=== PATIENT | male | born 1965 | race Caucasian/White ===

== ENCOUNTER → 2018-09-06 | Outpatient (CLI) | payer OTHER ==
--- NOTE | 2018-09-06 10:27 | PCVCIMAG ---
APPROVED REPORT Study performed: 09/06/2018 08:45:05 EXAM: Comprehensive 2D, Doppler, and color-flow Echocardiogram Patient Location: Echo lab Status: routine BSA: 2.22 HR: 70 bpmBP: 118/70 mmHg Rhythm: NSR Other Information Study Quality: Adequate Risk Factors: Cardiac Risk Factors: HTN Indications Chest Pain pre-diabetes 2D Dimensions IVSd: 11.85 (7-11mm)LVOT Diam: 19.31 (18-24mm) LVDd: 45.15 mm PWd: 9.38 (7-11mm)Ascending Ao: 32.82 (22-36mm) LVDs: 38.17 (25-40mm) Left Atrium: 49.26 (27-40mm) Aortic Root: 33.13 mm LV Single Plane 4CH: 57.85 % LV Single Plane 2CH: 55.83 % Biplane EF: 57.5 % Volumes Left Atrial Volume (Systole) Single Plane 4CH: 19.65 mLSingle Plane 2CH: 37.23 mL LA ESV Index: 12.00 mL/m2 Aortic Valve AoV Peak Ld.: 1.20 m/s AO Peak Gr.: 5.73 mmHgLVOT Max P.44 mmHg LVOT Max V: 0.93 m/s ANTONIO Vmax: 2.27 cm2 Mitral Valve E/A Ratio: 0.9 MV Decel. Time: 168.69 ms MV E Max Ld.: 0.78 m/s MV A Ld.: 0.88 m/s TDI E/Lateral E': 6.00E/Medial E': 8.67 Medial E' Ld.: 0.09 m/s Lateral E' Ld.: 0.13 m/s Pulmonary Valve PV Peak Gr.: 4.24 mmHg Pulmonary Vein P Vein S: 0.70 m/sP Vein A: 0.41 m/s P Vein D: 0.61 m/sP Vein A Dur.: 83.0 msec P Vein S/D Ratio: 1.15 Tricuspid Valve TR Peak Ld.: 3.03 m/s TR Peak Gr.: 36.62 mmHg Left Ventricle The left ventricle is normal size. There is normal LV segmental wall motion. There is normal left ventricular wall thickness. Left ventricular systolic function is normal. The left ventricular ejection fraction is within the normal range. LVEF is 60-65%. The left ventricular diastolic function is normal. Right Ventricle The right ventricle is normal size. The right ventricular systolic function is normal. Atria The left atrium size is normal. The right atrium size is normal. Aortic Valve The aortic valve is normal in structure. No aortic regurgitation is present. There is no aortic valvular stenosis. Mitral Valve The mitral valve is normal in structure. There is no mitral valve regurgitation noted. No evidence of mitral valve stenosis. Tricuspid Valve The tricuspid valve is normal in structure. Trace tricuspid regurgitation. Pulmonic Valve The pulmonary valve is normal in structure. There is no pulmonic valvular regurgitation. Great Vessels The aortic root is normal in size. IVC is normal in size and collapses >50% with inspiration. Pericardium There is no pericardial effusion. <Conclusion> The left ventricle is normal size. There is normal left ventricular wall thickness. Left ventricular systolic function is normal. The right ventricle is normal size. The left atrium size is normal. The aortic valve is normal in structure. The mitral valve is normal in structure. Trace tricuspid regurgitation.
--- NOTE | 2018-09-07 09:58 | PCVCIMAG ---
APPROVED REPORT Study performed: 09/06/2018 09:00:43 Exam: Stress Echocardiogram Indication: Hypertension Patient Location: Echo lab Stress Nurse: Nevin Pratt RN Status: routine Ht: 5 ft 11 in HR: 83 bpm BP: 118/70 mmHg Rhythm: NSR Medical History Medical History: Hypertension, pre-diabetes Procedure The patient underwent an Exercise Stress Test using the Shreyas Protocol. Blood pressure, heart rate, and EKG were monitored. An Echocardiogram was performed by residential pest control technician in four stages in quad fashion. At peak stress, four selected images were obtained and placed side by side with resting images for comparison. Stress Test Details Stress Test: Exercise stress testing was performed using a Shreyas protocol. HR Resting HR: 83 bpmMax Heart Rate (APMHR): 167 bpm Max HR Achieved: 171 bpmTarget HR (85% APMHR): 141 bpm % of APMHR: 102 Recovery HR: 106 bpm HR response to stress: Normal HR response to stress BP Resting BP: 118/70 mmHg Max BP: 184/70 mmHg Recovery BP: 140/70 mmHg BP response to stress: Normal blood pressure response to stress. ECG Resting ECG: Sinus Rhythm Stress ECG: Sinus Rhythm ST Change: Non-ischemic Recovery ECG: Sinus Rhythm Clinical Reason for Termination: Maximal effort Exercise duration: 10 min 21 sec Highest Stage Achieved: Stage 4: 4.2 mph at 16% grade. Exercise capacity: 13.40 METs Overall Exercise Capacity for Age: Good Pre-Stress Echo The resting Echocardiogram showed normal left ventricular contractility with an estimated Ejection Fraction of about 55-60%. Normal wall motion in all segments on baseline images. Post-Stress Echo The stress Echocardiogram showed normal left ventricular contractility with an estimated Ejection Fraction of about 60-65%. Normal augmentation of wall motion in all segments on post stress images. Clinical No clinical or ECG evidence for ischemia. Conclusion Clinical Response: Non-ischemic Exercise Capacity: Average Stress ECG Response: Non-ischemic Stress Echo Images: Non-ischemic The left ventricle is normal in size and wall thickness in both the rest and stress images. Other Information Study Quality: Good <Conclusion> The left ventricle is normal in size and wall thickness in both the rest and stress images.
== END | disposition home or self-care (01) ==
LOC: PCVCIMAG 08:19
PROVIDERS: ATTEND Internal Medicine Cardiovascular Disease
DX: I10 Essential (primary) hypertension (principal); G47.33 Obstructive sleep apnea (adult) (pediatric); R53.83 Other fatigue; Z88.0 Allergy status to penicillin
CPT/HCPCS: 93306; 93351